=== PATIENT | female | born 2000 | race Caucasian/White ===

== ENCOUNTER 2024-11-15 23:27 | Inpatient (IN) ==
[2024-11-16] MEDS ORDERED: CALCIUM CARBONATE 500 MG CHEWABLE TAB PO PRN (00:30)
[2024-11-16] MEDS ORDERED: ACETAMINOPHEN 325 MG TAB PO PRN (00:30)
[2024-11-16] MEDS ORDERED: LIDOCAINE 1% LOCAL 20 ML VIAL INFIL PRN (00:30)
--- NOTE | 2024-11-16 00:32 | History & Physical Report ---
Date of Service November 16, 2024 Assessment & Plan (1) Gestational diabetes mellitus (GDM) affecting , antepartum: (2) with 39 completed weeks gestation: (3) Rupture, membranes, premature: Plan admit for gross prom. discussed options of walking and seeing if labor onsets, starting pitocin immediately. Wants expectant management for now. fetus category one. Admission and Anticipated Discharge Date Admission Date: November 15, 2024 History of Present Illness Chief Complaint: rom Primary Care Provider: CHELSIE Arevalo Patient is a 24yowf at 39 5/7 weeks. Patient notes gross rom at 10:15 this evening, clear. Not really followed with contractions. +fm. and Delivery Plans GDM w/wk glucola *Begin monthly Growth US's Maternal grandmother, Mom and Mom's brother all + for Factor V. *Pt Factor V Negative. OB Labs: Blood Type O Positive 03/25/24 Antibody Screen NEGATIVE 03/25/24 Hgb 10.7 g/dl (12.0-16.0) L 08/28/24 Hct 31.3 % (37.0-47.0) L 08/28/24 MCV 90.9 fL (80.0-100.0) 03/25/24 Plt Count 290 K/uL (130-400) 03/25/24 Rubella IgG Antibody Immune (Immune) 03/25/24 RPR Nonreactive (Nonreactive) 03/24/23 Treponema pallidum Ab Negative (Negative) 08/28/24 Hep Bs Antigen Negative (Negative) 03/25/24 Hep Bs Antigen NON-REACTIVE (NON-REACTIVE) 03/24/23 Hepatitis C Antibody Negative (Negative) 03/25/24 Hepatitis C Ab (EIA) NON-REACTIVE (NON-REACTIVE) 03/24/23 HIV 1&2 Ab/P24 Ag 4thGn Negative (Negative) 03/25/24 HIV (1&2) Ag & Ab Conf NON-REACTIVE (NON-REACTIVE) 03/24/23 Glucose 1 Hr 50 gm 155 mg/dl (70-130) H 08/28/24 OB Optional Labs: Chlamydia trachomatis RNA Not Detected (NotDetected) 03/25/24 Neisseria gonorrhoeae RNA Not Detected (NotDetected) 03/25/24 Thyroid Stimulating Hormone (TSH) 3.136 uIu/ml (0.300-4.500) 02/01/24 Labs Reviewed: Declines genetics--mln gbs neg Allergies Allergy/AdvReac Type Severity Reaction Status Date / Time amoxicillin Allergy Severe Hives Verified 11/12/24 09:22 Home Medications Medication Instructions Recorded Confirmed Type vits no.124-ferrous fum 1 tab PO DAILY 03/26/23 11/12/24 History 27 mg iron-folic acid 800 mcg tablet ( Vitamin) lactobacillus combination no.9 4 PO 02/01/24 11/12/24 History billion cell capsule (Adult 50 Plus Probiotic) loratadine [Claritin] PO 02/01/24 11/12/24 History cholecalciferol (vitamin D3) PO 03/20/24 11/12/24 History vitamin B complex PO 03/20/24 11/12/24 History ondansetron HCl 4 mg tablet 4 mg PO Q6H PRN nausea and 05/16/24 11/12/24 Rx vomiting #20 tabs FreeStyle Ivy 3 #2 ea 09/16/24 11/12/24 Rx Ivy 3 plus Sensor #2 ea 10/04/24 11/12/24 Rx docusate sodium [Colace] PO PRN 10/10/24 11/12/24 History Patient History Medical History Cat allergies Seasonal allergies Varicella vaccination Surgical History Status post surgery oral surgery S/P wisdom tooth extraction Family History Aunt Breast cancer maternal and paternal great aunts Aunt Breast cancer paternal aunts Brother Asthma Grandfather (Paternal) Asthma Diabetes Heart disease Mother Heart murmur Grandmother (Maternal) Hypertension Twin Denies family history of Ovarian cancer Colorectal cancer Social History Smoking Status: Never smoker Tobacco Type: Declines Second Hand Exposure: No; Do You Dip or Chew Tobacco: No; Tobacco Cessation Education Requested by Patient: No Hx Alcohol Use: Yes Alcohol Intake Frequency Comment: rare Hx Substance Use: No Preferred Language: Chadian Communication Ability: Effective Used Car Lot Attendant Required: No Beliefs That Will Affect Care: None marital status: marital status details: Socrates [phone] Current Living Situation: Spouse Current Living Situation Comment: [facility] [place] current occupational status: employed current occupation: [employer] RN How many Children do You have: 0 Other Information That Helps Us Care for You: No Feels Safe at Home: Yes Diet: regular caffeine: Yes during the past year weight has: increased > 10 lbs Dental Care, Regularly: Yes Physical Activity Frequency: 3-4 Times per Week Seatbelt Use: always Sunscreen Use: Yes Assistive Devices: None OB History g1--current [employer] History noncontributory Physical Exam Constitutional: WD/WN, vitals as above Gastrointestinal (Abdomen): soft, nt, gravid Psychiatric: A+Ox3, euthymic affect Genitourinary: grossly ruptured cx--ft/90/-2/post/soft toco--mics efm--130s with mod variability, accels to 160s, no decels Results & Data Vital Signs (Past 12 Hours) Vital Signs Temp Pulse Resp BP 11/15/24 23:52 37.1 C 96 H 16 137/87 11/15/24 23:39 96 H 137/87 Coding Level of Care Code None Diagnoses Gestational diabetes mellitus (GDM) affecting , antepartum O24.419 with 39 completed weeks gestation Z3A.39 Rupture, membranes, premature O42.90
[2024-11-16 01:10] LABS: Hematocrit (blood only) 35.5 % (37.0-47.0); Hemoglobin 12.1 g/dl (12.0-16.0); Mean Corpuscular Hemoglobin 32.1 pg (25.0-34.0); Mean Corpuscular Volume 94.2 fL (80.0-100.0); Platelet Count 227 K/uL (130-400); RDW Standard Deviation 46.5 fL (36.4-46.3); Red Blood Count 3.77 M/uL (4.20-5.40); White Blood Count 14.80 K/ul (4.8-10.8)
[2024-11-16] MEDS: LACTATED RINGER'S 1,000 ML IV PRN (04:20)
[2024-11-16] MEDS: OXYTOCIN 30 UNITS/NSS 30 UNITS/500 ML BAG IV PRN ×2 (04:21→14:59)
[2024-11-16] MEDS: BUTORPHANOL TARTRATE 1 MG/ML VIAL IV ONE (07:06)
[2024-11-16] MEDS ORDERED: METOCLOPRAMIDE HCL 20 MG in SODIUM CHLORIDE 0.9% 50 ML IV PRN (08:26)
[2024-11-16] MEDS ORDERED: LIDOCAINE 2% MPF LOCAL 5 ML VIAL EPI PRN (08:26)
[2024-11-16] MEDS ORDERED: ONDANSETRON INJ 2 MG/ML 2 ML VIAL IV PRN (08:26)
[2024-11-16] MEDS ORDERED: BUPIVACAINE 0.25% PF 30 ML VIAL EPI PRN (08:26)
[2024-11-16] MEDS ORDERED: NALOXONE HCL 1 MG in SODIUM CHLORIDE 0.9% 1,000 ML IV PRN (08:26)
[2024-11-16] MEDS ORDERED: SODIUM CHLORIDE 0.9% PF INJ 10 ML VIAL EPI PRN (08:26)
[2024-11-16] MEDS ORDERED: NALOXONE HCL 0.4 MG/1 ML VIAL/CARP IV PRN (08:26)
[2024-11-16] MEDS ORDERED: diphenhydrAMINE 50 MG/ML VIAL IV PRN (08:26)
[2024-11-16] MEDS ORDERED: ROPIVACAINE 0.5% PF 5 MG/ML 20 ML VIAL EPI PRN (08:26)
[2024-11-16] MEDS ORDERED: NALBUPHINE HCL INJ 10 MG/ML AMP IV PRN (08:26)
--- NOTE | 2024-11-16 08:26 | Anesthesiology Consultation ---
Date of Service November 16, 2024 Assessment & Plan Chart Review Chart Review: Acceptable Risk for Labor Epidural Consults Requested none ASA ASA2 Proposed Anesthesia Anesthesia Type: Labor Epidural Risk / Benefits Reviewed With: PT / POA / Parent / Guardian, Accepts Plan and Informed Consent Obtained History Height/Weight Height: 5 ft 8 in Weight: 106.594 kg Allergies Allergy/AdvReac Type Severity Reaction Status Date / Time amoxicillin Allergy Severe Hives Verified 11/12/24 09:22 Medications Home Medications Medication Instructions Recorded Confirmed Last Taken vits no.124-ferrous fum 1 tab PO DAILY 03/26/23 11/12/24 11/15/24 21:00 27 mg iron-folic acid 800 mcg tablet ( Vitamin) lactobacillus combination no.9 4 PO 02/01/24 11/12/24 11/15/24 21:00 billion cell capsule (Adult 50 Plus Probiotic) loratadine [Claritin] PO 02/01/24 11/12/24 11/15/24 21:00 cholecalciferol (vitamin D3) PO 03/20/24 11/12/24 11/15/24 21:00 vitamin B complex PO 03/20/24 11/12/24 11/15/24 21:00 ondansetron HCl 4 mg tablet 4 mg PO Q6H PRN nausea and 05/16/24 11/12/24 11/15/24 21:00 vomiting #20 tabs FreeStyle Ivy 3 #2 ea 09/16/24 11/12/24 Unknown Ivy 3 plus Sensor #2 ea 10/04/24 11/12/24 Unknown docusate sodium [Colace] 1 tab PO PRN Constipation 10/10/24 11/12/24 11/15/24 21:00 Active Medications Generic Name Dose Route Start Last Admin Trade Name Freq PRN Reason Stop Dose Admin Lactated Ringer's 1,000 mls @ 125 mls/hr 11/16/24 00:30 11/16/24 08:55 Lr IV 11/18/24 00:29 125 mls/hr .Q8H PRN Infusion L&D Protocol Protocol Oxytocin 30 units in 500 mls @ 12 mls/hr 11/16/24 02:12 11/16/24 07:30 Pitocin 30 Units/Nss IV 11/18/24 02:11 0.72 units/hr .Q24H PRN 12 mls/hr Labor Induction/Augmentation Titration Protocol 0.72 UNITS/HR NPO Date Last Intake of Fluids: 11/16/24 Time Last Intake of Fluids: 08:00 Date Last Intake of Solids: 11/15/24 Time Last Intake of Solids: 20:00 Last Intake of Solids Comment: assume full Past Medical History Medical History Cat allergies Seasonal allergies Varicella vaccination Exercise / Class Metabolic Activity II 4-5 Yardwork/Stairs/Walk up hill Past Family History Family History Aunt Breast cancer maternal and paternal great aunts Aunt Breast cancer paternal aunts Brother Asthma Grandfather (Paternal) Asthma Diabetes Heart disease Mother Heart murmur Grandmother (Maternal) Hypertension Twin Denies family history of Ovarian cancer Colorectal cancer Past Surgical History Surgical History Status post surgery oral surgery S/P wisdom tooth extraction Past Anesthesia History No Hx of Anesthesia Complications and No Family Hx of Anesthesia Complications History of PONV No Hx of PONV and No Hx of Motion Sickness Social History Smoking Status: Never smoker Do You Dip or Chew Tobacco: No Hx Alcohol Use: Yes Hx Substance Use: No Physical Exam Vital Signs Last Vital Signs Temp 36.7 C 11/16/24 07:00 Pulse 86 11/16/24 08:25 Resp 20 11/16/24 07:00 BP 123/78 11/16/24 08:16 Pulse Ox 95 11/16/24 08:25 ENMT Mouth: no TMJ abnormality Thyromental Distance: > or= 3.5 Finger Breadths Mallampati Class: III Neck normal visual inspection and trachea midline; neck extension not limited Respiratory normal respiratory effort Auscultation: lungs clear to auscultation bilaterally Cardiovascular Rate/Rhythm: regular rate and regular rhythm Heart Sounds: no murmur Musculoskeletal Spine: normal cervical ROM Extremities: full ROM of extremities Neurologic moves all extremities Psychiatric Orientation: alert and oriented x 3 Testing Laboratory Results 11/16/24 00:55 11/16/24 01:00 POC Glucose 88
[2024-11-16] MEDS: LIDOCAINE 2%/EPINEPHRINE 1:200,000 20 ML PF ONE (08:49)
[2024-11-16] MEDS: BUPIVACAINE 0.25% PF 30 ML VIAL ONE (08:49)
[2024-11-16] MEDS: fentANYL 2 MCG/ML BUPIVacaine 0.125%-NSS 100ML BAG ONE (08:54)
--- NOTE | 2024-11-16 09:47 | Labor Progress Brief Note ---
Date of Service November 16, 2024 Subjective comfortable w/ epidural Assessment & Plan (1) Gestational diabetes mellitus (GDM) affecting , antepartum: (2) with 39 completed weeks gestation: (3) Rupture, membranes, premature: Plan 24 yo at 39 5/7 wga admitted w/ prom VSS Fetus cat 1 Labor - pit just increased to 14, slow change noted. Continue pitocin A1GDM - BG doing well, has cgm so will continue q2-4 monitoring GBS neg epidural in place Admission and Anticipated Discharge Date Admission Date: November 15, 2024 Physical Exam Genitourinary: Manual OB Exam: + cervical dilation (1+), + cervical effacement 60% and + station -2 OB Exam Monitor Tracing: + external FHT monitor used, + external uterine monitor used (q3-5) and + category I (130/mod/+accel/-decel) Results & Data Vital Signs (Past 12 Hours) Vital Signs Temp Pulse Resp BP BP Pulse Ox 11/16/24 09:41 93 11/16/24 09:41 96 H 11/16/24 09:41 90 117/68 11/16/24 09:36 93 11/16/24 09:36 85 11/16/24 09:36 82 120/57 L 11/16/24 09:31 81 118/66 93 11/16/24 09:30 20 11/16/24 09:30 20 11/16/24 09:26 83 94 11/16/24 09:25 86 113/65 11/16/24 09:21 86 94 11/16/24 09:20 79 116/58 L 11/16/24 09:16 88 115/60 95 11/16/24 09:11 84 95 11/16/24 09:10 118/60 11/16/24 09:07 79 118/62 11/16/24 09:06 95 11/16/24 09:06 81 11/16/24 09:06 71 120/64 11/16/24 09:03 72 119/66 11/16/24 09:01 74 113/68 88 L 11/16/24 09:00 85 18 112/71 11/16/24 08:59 77 88 L 11/16/24 08:58 71 127/75 11/16/24 08:56 93 11/16/24 08:56 78 11/16/24 08:56 74 124/71 11/16/24 08:55 20 11/16/24 08:55 20 11/16/24 08:53 71 120/69 11/16/24 08:51 66 114/65 95 11/16/24 08:50 67 20 109/59 L 11/16/24 08:48 84 110/62 11/16/24 08:46 89 96 11/16/24 08:41 73 95 11/16/24 08:35 96 H 94 11/16/24 08:30 84 95 11/16/24 08:27 68 87 L 11/16/24 08:25 86 95 11/16/24 08:20 86 96 11/16/24 08:17 90 92 11/16/24 08:16 74 123/78 11/16/24 08:15 71 95 11/16/24 07:00 98.1 F 82 20 132/94 11/16/24 06:35 83 131/90 11/16/24 06:30 16 11/16/24 06:30 16 11/16/24 06:00 98.6 F 16 128/73 11/16/24 06:00 16 11/16/24 06:00 98.6 F 16 11/16/24 04:00 98.4 F 11/16/24 03:57 78 127/81 11/16/24 03:54 16 11/16/24 03:54 98.4 F 16 11/16/24 03:25 16 11/16/24 03:25 16 11/16/24 02:06 16 11/16/24 02:06 16 11/16/24 02:00 98.4 F 11/16/24 01:40 83 120/69 11/16/24 01:12 98.8 F 16 11/15/24 23:52 98.8 F 96 H 16 137/87 11/15/24 23:39 96 H 137/87 Coding Level of Care Code None Diagnoses Gestational diabetes mellitus (GDM) affecting , antepartum O24.419 with 39 completed weeks gestation Z3A.39 Rupture, membranes, premature O42.90
[2024-11-16] MEDS: fentANYL 2 MCG/ML BUPIVacaine 0.125%-NSS 100ML BAG EPI PRN (14:09)
[2024-11-16] MEDS: SODIUM CHLORIDE 0.9% PF INJ 10 ML VIAL EPI STA (14:40)
[2024-11-16] MEDS: LIDOCAINE 2%/EPINEPHRINE 1:200,000 20 ML PF EPI STA (14:40)
[2024-11-16] MEDS: BUPIVACAINE 0.25% PF 30 ML VIAL EPI STA (14:40)
[2024-11-16] MEDS: SODIUM CHLORIDE 0.9% PF INJ 10 ML VIAL ONE (14:40)
[2024-11-16] MEDS: METHYLERGONOVINE MALEATE 0.2 MG/ML AMP ONE (14:41)
--- NOTE | 2024-11-16 14:52 | Delivery Summary ---
Vaginal Delivery Summary Date of Service November 16, 2024 Vaginal Delivery Summary and 2nd Degree LAC PREOPERATIVE DIAGNOSIS: 1. Single intrauterine at 39 5/7 wga 2. PROM 3. A1GDM POSTOPERATIVE DIAGNOSIS: 1. Single intrauterine at 39 5/7 wga 2. PROM 3. A1GDM 4. Mild Shoulder Dystocia 5. Delivered PROCEDURE: 1. Normal spontaneous vaginal delivery. SURGEON: Caro Gomez MD ANESTHESIA: Epidural. QUANTITATIVE BLOOD LOSS: 112 mL FLUIDS: Continuous LR. URINE OUTPUT: None. COMPLICATIONS: None. CONDITION: Stable. INDICATIONS: 24-year-old G2, P0 at 39-5/7 weeks gestational age presented this morning with gross rupture membranes. She was given time to ambulate however contractions did not start and so she was started on Pitocin. She received an epidural for pain control and progressed to complete and desired to push. FINDINGS: A viable female infant, weight pending with Apgars of 8 and 9 at 1 and 5 minutes respectively. SPECIMEN: Cord blood OPERATIVE REPORT: The patient progressed to 10 cm, 100% effaced and +2 station, pushed quickly over intact perineum with anesthesia to deliver a viable female infant, weight and Apgars as above. Head of delivered in ZAKIA position. No nuchal cord was present. Body and shoulders did not deliver easily with gentle downward traction. Shoulder dystocia was called, McRobert's and Suprapubic pressure were used to immediately relieve the dystocia. Remainder of body delivered without difficulty. was delivered to maternal abdomen and nursing staff. Delayed cord clamping was performed for 60 seconds. Cord was clamped and cut. Cord blood was obtained. Placenta delivered spontaneously intact with 3-vessel cord. IV oxytocin and fundal massage were given however lower uterine segment atony was noted. Clots were extracted and one dose of methergine was administered for excellent hemostasis. Vagina, cervix, perineum, and placenta were inspected. A second degree laceration was repaired in the usual fashion. There was excellent hemostasis. Sponge and needle counts correct x2. No sponges were left behind. Mother and stable in immediate period. [facility] Vaginal Delivery Charge Vaginal Delivery Codes: 38187 global code for the antepartum, delivery, and post- Delivery Type Details: and 2nd Degree LAC
[2024-11-16] MEDS ORDERED: OXYTOCIN 30 UNITS/NSS 30 UNITS/500 ML BAG IV PRN (15:19)
[2024-11-16] MEDS ORDERED: HYDROCORTISONE ACETATE 25 MG SUPP PR PRN (15:19)
[2024-11-16] MEDS: METHYLERGONOVINE MALEATE 0.2 MG/ML AMP IM ONE (16:15)
[2024-11-16] MEDS: DIPHTHER/TETAN/PERTUS Vaccine (Tdap, Adol/Adult) 0.5mL IM ONE (16:15)
--- NOTE | 2024-11-16 16:45 | Anesthesia Procedure Note ---
Date of Service November 16, 2024 Anesthesia Post Epidural Note Vital Signs Vital Signs: Temp Pulse Resp BP Pulse Ox 37.2 C 82 18 141/75 H 100 11/16/24 13:00 11/16/24 16:34 11/16/24 16:20 11/16/24 16:34 11/16/24 14:21 Pain Intensity Bilateral Abdomen: Pain Intensity: 0 Notes Mental Status: alert / awake / arousable and participated in evaluation Nausea / Vomiting: adequately controlled Pain: adequately controlled Airway Patency, RR, SpO2: stable & adequate BP & HR: stable & adequate Hydration State: stable & adequate Neuraxial Anesthesia: was administered and sensory block is resolving Anesthetic Complications: no major complications apparent and Pt Satisfied with anesthetic care Epidural: Removed without complications and With tip intact
[2024-11-16] MEDS: IBUPROFEN 600 MG TAB PO PRN (21:10)
[2024-11-16] MEDS: BENZOCAINE 20% SPRY 85 APPLN/85 GM CAN EXT PRN (21:11)
[2024-11-16] MEDS: DOCUSATE SODIUM 100 MG CAP PO SCH (22:18)
[2024-11-17] MEDS: ACETAMINOPHEN 325 MG TAB PO PRN (04:39)
[2024-11-17] MEDS: PRENATAL VITAMIN 1 TAB PO SCH (08:49)
[2024-11-17] MEDS: FERROUS SULFATE 325 MG TAB PO SCH (08:49)
--- NOTE | 2024-11-17 09:12 | Obstetrical Progress Note ---
Date of Service November 17, 2024 Assessment & Plan (1) Encounter for care and examination after delivery: 24 yo PP1 from , doing well -Meeting all pp milestones -O+/rubella immune -f/u 6 weeks for appt. May be interested in dc if baby is dc, other wilhelm continue routine care Subjective Ambulation: ambulating normally Voiding: no voiding problems Passing Gas:: Yes Diet Tolerance:: regular diet Lochia:: Small Pain well managed with medication Review of Systems Denies fevers, chills, n/v, GREENE, CP, SOB Physical Exam Constitutional WD/WN, vitals as above no acute distress Respiratory normal respiratory effort, lungs clear to auscultation Cardiovascular RRR, no murmur, no edema Gastrointestinal (Abdomen) Percussion/Palpation: abdomen soft; abdomen nontender fundus firm at umbilicus and NT Musculoskeletal BLE symmetric, nonerythematous, nontender Results & Data Vital Signs (Past 12 Hours) Vital Signs Temp Pulse Resp BP Pulse Ox O2 Del Method 11/17/24 04:50 98.6 F 80 18 125/77 96 Room Air 11/16/24 23:40 98.1 F 82 16 124/81 97 Room Air
[2024-11-18 00:37] VITALS: O2SAT 98
[2024-11-18 07:16] VITALS: PULSE 63; RESP 16; TEMP 97.7
--- NOTE | 2024-11-18 07:39 | Obstetrical Progress Note ---
Date of Service November 18, 2024 Assessment & Plan (1) Encounter for care and examination after delivery: 24 yo PP2 from , doing well -Meeting all pp milestones -O+/rubella immune -f/u 6 weeks for appt. DC home today Subjective Ambulation: ambulating normally Voiding: no voiding problems Passing Gas:: Yes Diet Tolerance:: regular diet Lochia:: Small Pain well managed with medication Review of Systems Denies fevers, chills, n/v, GREENE, CP, SOB Physical Exam Constitutional WD/WN, vitals as above no acute distress Respiratory normal respiratory effort, lungs clear to auscultation Cardiovascular RRR, no murmur, no edema Gastrointestinal (Abdomen) Percussion/Palpation: abdomen soft; abdomen nontender fundus firm at umbilicus and NT Musculoskeletal BLE symmetric, nonerythematous, nontender Results & Data Vital Signs (Past 12 Hours) Vital Signs Temp Pulse Resp BP Pulse Ox O2 Del Method 11/18/24 07:16 97.7 F 63 16 113/68 98 Room Air 11/18/24 00:30 98.2 F 82 18 126/79 98 Room Air 11/17/24 20:35 98.4 F 78 18 120/79 97 Room Air
[2024-11-18 10:53] VITALS: BP 128/73
== END 2024-11-18 13:34 | disposition home or self-care (01) | DRG 806 ==
LOC: 4S1 → OBSVTOIN 23:27 → 4E2 11-16 20:22